=== PATIENT | male | born 1970 | race Caucasian/White ===

== ENCOUNTER 2022-12-26 18:58 | Inpatient (IN) | payer BC, SELFPAY ==
[2022-12-26] VITALS (16 sets, daily range): BP systolic 133–164; BP diastolic 79–98; PULSE 64–98; RESP 18–96; TEMP 36.7; O2SAT 96–100; BMI 25.0
--- NOTE | ~2022-12-26 | XR_ITS ---
EXAMINATION: XR chest 1V portable DATE: 12/26/2022 19:13 INDICATION: ST elevation myocardial infarction. TECHNIQUE: A single frontal view of the chest was obtained. COMPARISON: None. FINDINGS: The chest demonstrates clear lungs without pneumonia, pleural effusion, or pneumothorax. Th e heart size is normal. IMPRESSION: 1. No acute cardiopulmonary disease. Reviewed, dictated and finalized at location E.
--- NOTE | 2022-12-26 19:06 | ED.CHESTPAIN ---
HPI - Chest Pain General Chief Complaint: Chest Pain Stated Complaint: stemi History of Present Illness HPI narrative: 52-year-old male presented the emergency department by EMS for evaluation of STEMI. Approximately 30 minutes prior to arrival patient had onset of substernal chest pain. Patient reports he is getting ready to work out. Patient has no prior history of DE. Patient reports he does have some mild hypertension but does not take any medications. Patient does take atorvastatin and metformin for high cholesterol and diabetes. Patient states he works out 30 minutes a day but typically has no chest pain with exertion. Patient has never had a stress test. Patient describes substernal chest pain that does not radiate to his arms neck or back. Patient does report some mild shortness of breath. Related Data Home Medications Medication Instructions Recorded Confirmed atorvastatin 20 mg tablet 20 mg PO QAM 12/26/22 12/26/22 metformin 1,000 mg tablet 1,000 mg PO BID 12/26/22 12/26/22 Allergies Allergy/AdvReac Type Severity Reaction Status Date / Time erythromycin base Allergy hives Verified 08/19/22 08:10 Review of Systems Review of Systems: All systems reviewed & are unremarkable except as noted in HPI and below PMFSH Past Medical History Medical History Hyperlipidemia Type 2 diabetes mellitus without complications Surgical History Surgical History History of tonsillectomy (~1977) Family History Family History Father Diabetes mellitus Arteriosclerotic heart disease (ASHD) Father Diabetes mellitus Family history of cardiovascular disease Grandparent Acute myocardial infarction Mother Family history of malignant neoplasm of breast in first degree relative Social History Social History (Updated 08/19/22 @ 09:12 by Anna Issa, STRUCTURAL ANALYSIS ENGINEER) Social History: Prabhakar is single, he has no children. 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 Smoking packs per day: 1.5 Smoking cigarettes per day: 30.0 Smoking status: Former smoker Tobacco type: cigarettes Smoking end date: 10/15/21 Alcohol intake: never Substance use: current Substance use type: marijuana Lack of Transportation: No Lack of Food: Never True Current Housing: I Have Housing Concerned About Future Housing: No Difficulty Paying Gas/Electric Bills: No Difficulty Paying for Meds: No Currently Unemployed: No Education: Bachelor's Degree Difficulty w/ Childcare or Family Care: No Exam Narrative: APPEARANCE: Pale appearing HEAD: normocephalic, atraumatic. EYES: PERRLA/EOMI, conjunctivae clear. NOSE: Normal no drainage EARS:TMS clear with good light reflex. THROAT: Pharynx clear, no exudate. NECK: Supple. No adenopathy, no masses. RESPIRATORY: Airway patent, respirations nonlabored. Clear to auscultation bilaterally, no rales, rhonchi, wheezing. CARDIOVASCULAR: Regular rate and rhythm without murmurs rubs or gallops. ABDOMINAL: Soft, nontender, nondistended, normal bowel sounds MUSCULOSKELETAL: Moves all extremities. Strength/ROM intact, No edema, No calf tenderness. NEURO: Alert. Cranial nerves II through XII intact. SKIN: Warm, dry. Normal Color Course Course Emergency Course: 52-year-old male presenting to the emergency department by EMS for a STEMI that was called in the field. Cardiology was consulted and Dr. Cisneros reports he is in route to the emergency department. Upon arrival to the ED patient had been treated with aspirin per EMS. No nitro was given due to it being an inferior DE. Patient was treated with heparin bolus and Brilinta. Patient was transferred to the emergency room Vital Signs Vital signs: Vital Signs Temperature 98.1 F 12/26/22 19:01 Pulse Rate 64 12/26/22 19:01 Respiratory Rate 18 12/26/22 19:01
[2022-12-26] MEDS: TICAGRELOR 90 MG TABLET 180 MG PO (19:14)
[2022-12-26 19:22] LABS: Basophils Absolute Auto 0.1 K/mm3 (0.0-0.1); Basophils Percent Auto 0.7 % (0.2-1.2); Eosinophils Absolute Auto 0.4 K/mm3 (0-0.3); Eosinophils Percent Auto 5.4 % (0-4.4); Hematocrit 44.6 % (42.0-52.0); Hemoglobin 14.2 g/dL (14.0-18.0); Immature Granulocyte Absolute 0.01 K/mm3 (0.00-0.031); Immature Granulocyte Percent A 0.1 % (0-0.5); Lymphocytes Absolute Auto 3.59 K/mm3 (0.9-3.2); Lymphocytes Percent Auto 48.6 % (18.3-44.2); Mean Corpuscular HGB Conc 31.8 g/dl (32-36); Mean Corpuscular Hemoglobin 26.4 pg (26-34); Mean Corpuscular Volume 83.1 fl (80-100); Mean Platelet Volume 10.7 fl (7.4-10.4); Monocytes Absolute Auto 0.5 K/mm3 (0.1-0.6); Monocytes Percent Auto 6.8 % (2.6-8.5); Neutrophils Absolute Auto 2.8 K/mm3 (1.3-6.7); Neutrophils Percent Auto 38.4 % (45.5-73.1); Platelet Count Result 208 k/mm3 (150-375); Red Blood Count 5.37 M/mm3 (4.6-6.20); White Blood Count 7.4 K/mm3 (4.5-10.0)
[2022-12-26] MEDS: HEPARIN SODIUM 5,000 UNITS/ML VIAL 5000 UNITS IV PUSH (19:32)
[2022-12-26 19:35] LABS: INR 0.9; Partial Thromboplastin Time 24.1 SECONDS (22.3-36.8); Prothrombin Time 12.8 Seconds (11.1-14.7)
[2022-12-26 19:42] LABS: LDL Cholesterol Direct 51 mg/dL
[2022-12-26 19:45] LABS: Troponin I < 0.012 ng/mL (0.000-0.034)
[2022-12-26 19:50] LABS: Alanine Aminotransferase 43 U/L (6-50); Albumin Level 2.6 g/dL (3.5-5.1); Alkaline Phosphatase 69 U/L (38-126); Anion Gap 4 mmol/L (8-16); Aspartate Amino Transferase 67 U/L (17-59); Bilirubin,Total 0.5 mg/dL (0.2-1.3); Blood Urea Nitrogen 12 mg/dL (9-20); Calcium 5.7 mg/dL (8.4-10.2); Carbon Dioxide 22 mmol/L (22-30); Chloride 114 mmol/L (98-107); Cholesterol 95 mg/dL (0-200); Estimated CRCL calculation 124 ml/min; Estimated Glomerular Filt Rate > 60; Glucose 119 mg/dL (65-110); HDL Direct 21 mg/dL; Sodium 140 mmol/L (137-145); Triglycerides 177 mg/dL (<150)
--- NOTE | 2022-12-26 20:26 | ECG_ITS ---
Measurements Intervals [place] Rate: 63 P: 73 [place]: 165 QRS: 66 QRSD: 94 T: 84 QT: 400 QTc: 410 Interpretive Statements SINUS RHYTHM POSSIBLE LEFT ATRIAL ENLARGEMENT INFERIOR ST ELEVATION MYOCARDIAL INJURY- ACUTE POSTERIOR INFARCT, ACUTE ABNORMAL ECG NO PREVIOUS ECG AVAILABLE FOR COMPARISON Electronically Signed On 12-26-2022 20:38:48 CDT by Ulises Newsome D.O.
--- NOTE | 2022-12-26 20:37 | WPDCARDPROC ---
Cardiac Cath Procedure Note Date of procedure:: 12/26/22 Performing physician:: Bartolome Cisneros MD Indication:: inferior wall ST-elevation [place] Brief clinical history:: 52-year-old man without prior cardiac history he has dyslipidemia and reports borderline diabetes. Presents with chest pain and acute inferior ST-elevation [place] this evening. Procedure Procedure performed:: Emergency coronary angiography emergency PCI(MAURICIO) to the distal RCA / RPDA ostium PTCA of the RPL through the struts of the stent left ventriculogram Sedation/Medication given:: fentanyl 50 mg Versed 2 mg case start time 7:43 p.m. case end time 8:22 p.m. sedation provided by Tatiana Davison RN, trained observer Access site:: right femoral artery Estimated blood loss:: 100 cc Procedure note:: patient was brought to the cardiac catheterization lab in the emergency setting described above. The right femoral triangle was prepped and draped usual fashion. Anesthesia was provided with 1% lidocaine infiltrated locally. Using a modified Seldinger technique the femoral artery was punctured and a 6 Dominican vascular sheath was placed. After this I used a 5 Dominican FL4 catheter to engage and inject the left coronary artery in multiple projections after this I used a 6 Dominican JR4 guiding catheter to engage inject the right coronary artery. The cineangiograms were reviewed and PCI of the distal RCA/ RPDA ostium was recommended a carried out as detailed below. Prior to PCI the patient received a bolus and infusion of Angiomax for procedural anticoagulation. He did receive 325mg of aspirin and 180 mg of Brilinta in the emergency department. Following PCI as detailed below the guiding catheter and guidewires were removed and a 5 Dominican angled pigtail catheter was used to measure left-sided hemodynamics and to perform a left ventriculogram in the ESCALANTE projection. Following this the case was terminated the sheath was sutured into position the patient will be taken to the ICU post [place] PCI recovery. Procedure was well tolerated and uncomplicated. Findings:: Hemodynamics: Central aortic pressure is 164 over 82 left ventricle 164 to end-diastolic 18 the a pullback across the aortic valve. Left ventricle: The LV is normal in size the base of the inferior wall as well as the midportion are akinetic the remainder of the LV contracts normally the global ejection fraction is 50-55%. The left main coronary artery is nicely patent the left anterior descending is a moderate caliber artery extending down to the apex. The LAD and its branches are free of significant disease there is mild luminal irregularity in the mid LAD but no significant lesions are identified. The circumflex is a medium caliber vessel giving rise to the marginal branches the circumflex system has mild diffusely atherosclerotic irregularities but no functional flow-limiting disease is seen. The right coronary artery is very large in caliber and dominant to the posterior circulation the right coronary artery has an inferior downward takeoff. Ostium vessel is widely patent 1st portion of the RCA has mild 40-50% stenosis. This remainder of the trunk of the RCA has mild diffuse atherosclerotic irregularities but no stenotic lesions. There is subtotal 99% stenosis at the origin of the RPDA extending into the distal RCA proper. The RPL branch is medium in caliber and free of disease. There is PERCY 1 flow in the RPDA angiographically. Intervention: The right coronary artery was wired using a 0.014 BMW coronary guidewire I used this to traverse the distal subtotal occlusion and advance the wire into the RPDA. The target lesion was then pre-dilated using a 2.5 x 20 mm Boyd balloon which did restore PERCY 3 flow into the RPDA. Following this the lesion was stented using 2.75 x 15 mm Orsiro drug-eluting stent extending from the proximal part of the RPDA back into the distal RCA proper. Following
--- NOTE | 2022-12-26 20:49 | PM.IMHP ---
H&P: HPI History of Present Illness Date/Time: 12/26/22 20:49 Chief Complaint: chest pain Narrative: this is a 52-year-old man unknown to me prior to this emergency. He presents to the emergency room this evening with chest pain that began about 45 minutes. ECG in the ambulance demonstrates obvious acute inferior ST-elevation [place]. he reports no prior cardiac history. He says that he has some dyslipidemia and prediabetes. He quit smoking about 1 year ago. 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 Review of Systems Review of Systems: ROS unobtainable: Yes unobtainable due to medical condition PMF Past Medical History Medical History Hyperlipidemia Type 2 diabetes mellitus without complications Surgical History Surgical History History of tonsillectomy (~1977) Family History Family History Father Diabetes mellitus Arteriosclerotic heart disease (ASHD) Father Diabetes mellitus Family history of cardiovascular disease Grandparent Acute myocardial infarction Mother Family history of malignant neoplasm of breast in first degree relative Social History Social History (Updated 08/19/22 @ 09:12 by Anna Issa, CANAL SUPERINTENDENT) Social History: Prabhakar is single, he has no children. 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 Smoking status: Former smoker Tobacco type: cigarettes and e-cigarettes/vaping Smoking end date: 10/15/21 Alcohol intake: never Substance use: current Substance use type: marijuana Lack of Transportation: No Lack of Food: Never True Current Housing: I Have Housing Concerned About Future Housing: No Difficulty Paying Gas/Electric Bills: No Difficulty Paying for Meds: No Currently Unemployed: No Education: Bachelor's Degree Difficulty w/ Childcare or Family Care: No Meds Home Medications and Allergies Home Medications Medication Instructions Recorded Confirmed Type atorvastatin 20 mg tablet See Rx Instructions .Route 09/12/22 Rx .COMPLEX #90 tabs metformin 1,000 mg tablet See Rx Instructions .Route 09/12/22 Rx .COMPLEX #180 tabs Allergies Allergy/AdvReac Type Severity Reaction Status Date / Time erythromycin base Allergy hives Verified 08/19/22 08:10 Vital Signs Vital Signs - 24 hr 12/26/22 19:01 12/26/22 19:31 Temperature 36.7 C Pulse Rate 64 64 Respiratory Rate 18 23 H Blood Pressure 164/96 H 158/94 H Pulse Oximetry 100 100 Oxygen Delivery Nasal Cannula Oxygen Flow Rate 2 Exam Const: General: uncomfortable Other: Well-developed well-nourished white male appearing his stated age appears to be uncomfortable with chest pain HENMT: Mouth: Yes moist mucous membranes Eyes: Sclera: sclerae normal Neck: Neck: supple and no JVD Other: carotid arteries are unremarkable in palpation and auscultation bilaterally Resp: Effort & Inspection: normal respiratory effort Auscultation: clear to auscultation bilaterally Cardio: Rate: regular rate Rhythm: regular rhythm Other: no murmur S4 gallop is audible no rub GI: GI Palp: Yes Soft to palpation Auscultation: normal bowel sounds Skin: General skin exam: normal color Neuro: Other: alert and oriented x3 Extrem: Other: normal perfusion no edema H&P: Results Labs Labs: Short CBC 12/26/22 Range/Units 19:12 WBC 7.4 (4.5-10.0) K/mm3 Hgb 14.2 (14.0-18.0) g/dL Hct 44.6 (42.0-52.0) % Plt Count 208 (150-375) k/mm3 BMP 12/26/22 19:12 Sodium 140 Potassium 2.0 L* Chloride 114 H Carbon Dioxide 22 BUN 12 Creatinine 0.50 L Glucose 119 H Calcium 5.7 L Cardiac Enzymes 12/26/22 Range/Units 19:12 Troponin I < 0.012 (0.000-0.034) ng/mL L
--- NOTE | 2022-12-26 20:51 | ADMGEN ---
This patient, Prabhakar Balderrama, was admitted to Intensive Care Unit-9. Patient/family oriented to hospital policies and general routines including ID bracelet, bed and alarms, visiting hours, pain management, procedures, bathroom and other care routines, personal items, smoking policy, room service/diet, and visiting hours. Information on how to activate the Rapid Response Team has been discussed. Patient/Family are encouraged to report perceived risks to care and to ask questions if they do not understand what they are told or what they should do.
--- NOTE | 2022-12-26 21:11 | ECG_ITS ---
Measurements Intervals [place] Rate: 92 P: 73 ND: 181 QRS: 46 QRSD: 88 T: 7 QT: 354 QTc: 439 Interpretive Statements SINUS RHYTHM INFERIOR INFARCT, RECENT ABNORMAL ECG COMPARED TO ECG 12/26/2022 19:03:58 INFERIOR INFARCT, RECENT Electronically Signed On 12-27-2022 7:46:02 CDT by Ulises Newsome D.O.
[2022-12-26 21:39] LABS: Anion Gap 9 mmol/L (8-16); Blood Urea Nitrogen 15 mg/dL (9-20); Calcium 9.1 mg/dL (8.4-10.2); Carbon Dioxide 25 mmol/L (22-30); Chloride 102 mmol/L (98-107); Cholesterol 151 mg/dL (0-200); Estimated CRCL calculation 105 ml/min; Estimated Glomerular Filt Rate > 60; Glucose 194 mg/dL (65-110); HDL Direct 39 mg/dL; Potassium 3.8 mmol/L (3.4-5.0); Sodium 136 mmol/L (137-145); Triglycerides 143 mg/dL (<150)
[2022-12-26] MEDS: SODIUM CHLORIDE 0.9% IV 1,000 ML 125 ML IV CONT (21:39)
[2022-12-26] MEDS: METOPROLOL TARTRATE 25 MG TABLET PO (21:44)
[2022-12-26 21:50] LABS: LDL Cholesterol Direct 86 mg/dL
[2022-12-27] VITALS (25 sets, daily range): BP systolic 114–156; BP diastolic 56–94; PULSE 53–78; RESP 17–22; TEMP 36.4–37.2; O2SAT 92–100
--- NOTE | 2022-12-27 | ECHO_ITS ---
Patient Info Name: Prabhakar Balderrama Age: 52 years : 1970 Gender: Male Ht: 65 in Wt: 145 lbs BSA: 1.75 m2 HR: 52 bpm BP: 156 / 80 mmHg Heart Rhythm: Sinus Rhythm Technical Quality: Fair Exam Date: 12/27/2022 11:48 AM Exam Location: [facility] Pulmonary Exam Room: ICU9 Patient Status: Inpatient Admit Date: 12/26/2022 Staff Ordering Physician: Bebo Wayne MD Paper Cone Maker: Halle Pang RDCS Attending Provider: Bartolome Cisneros MD Exam Type: CA echo doppler color flow Study Info Indications - CHEST PAIN STEMI S/P PCI Complete two-dimensional, color flow and Doppler transthoracic echocardiogram is performed. Summary 1. Complete two-dimensional, color flow and Doppler transthoracic echocardiogram is performed. 2. Left ventricular systolic function is normal, estimated at 55-60%. 3. The mid to basal inferior segment is akinetic, the remainder contracts normally. 4. Right ventricular chamber dimension is normal. 5. There is trace mitral valve regurgitation. Left Ventricle Left ventricular chamber dimension is normal. Left ventricular systolic function is normal, estimated at 55-60%. The left ventricular diastolic function is normal. The mid to basal inferior segment is akinetic, the remainder contracts normally. Right Ventricle Right ventricular chamber dimension is normal. Left Atria Left atrial chamber dimension is normal. Right Atria Right atrial chamber dimension is normal. Aortic Valve The aortic valve is trileaflet. There is mild aortic valve sclerosis. Pulmonic Valve The pulmonic valve is normal. Mitral Valve The mitral valve has normal leaflets. There is trace mitral valve regurgitation. Tricuspid Valve The tricuspid valve leaflets are normal. There is trace tricuspid valve regurgitation. Pericardium/Pleural The pericardium appears normal. Aorta The aortic root size at the sinus of Valsalva is normal. Left Ventricular Outflow Tract Name Value Normal LVOT 2D LVOT Diameter 2.0 cm LVOT Doppler LVOT Peak Gradient 4 mmHg LVOT Mean Gradient 2 mmHg LVOT VTI 23 cm LVOT VTI/AV VTI Ratio 0.9 LVOT Stroke Volume 69 ml LVOT CO 11.9 l/min LVOT CI 6.8 l/min/m2 Pulmonic Valve Name Value Normal PV Doppler PV Peak Gradient 2 mmHg Mitral Valve Name Value Normal MV Doppler MV Decel [place] 338 cm/s2 MV PHT 63 ms MV Area (PHT) 3.5 cm2 4.0-5.0 MV Josi
--- NOTE | 2022-12-27 05:11 | ECG_ITS ---
Measurements Intervals [place] Rate: 56 P: 69 NV: 155 QRS: -25 QRSD: 92 T: -48 QT: 418 QTc: 406 Interpretive Statements SINUS BRADYCARDIA INFERIOR INFARCT, RECENT ABNORMAL ECG COMPARED TO ECG 12/26/2022 21:11:34 SINUS BRADYCARDIA NOW PRESENT Electronically Signed On 12-27-2022 7:56:01 CDT by Ulises Newsome D.O.
--- NOTE | 2022-12-27 07:46 | PM.PNCARD ---
Progress Note: A&P Assessment and Plan (1) STEMI (ST elevation myocardial infarction): Code(s): I21.3 - ST elevation (STEMI) myocardial infarction of unspecified site Status: Acute Plan 52-year-old man with: Newly diagnosed coronary artery disease presenting yesterday evening with acute inferior ST-elevation [place]. Patient was brought to the label pinker and underwent successful PCI of the distal right coronary artery, origin of the RPDA and then balloon dilation of the origin of the RPL branch which was jailed by the stent device. He is doing well clinically this morning and has had no post [place] complications at this juncture. Long discussion with the patient about the nature of his coronary disease, last night procedure as well as the medications that are required at this time which of course include dual anti-platelet therapy, beta-devora, ARB and statin. His principal coronary risk factor was his previous history of smoking which fortunately he discontinued about a year ago. He is clinically stable and can moved to the IMU today. Would anticipate discharge on Thursday Bartolome Cisneros MD [facility] Subjective Date/time seen: Date of service: 12/27/22 07:46 Interval history: Follow-up visit in this 52-year-old man with: Coronary artery disease presenting with acute inferior ST-elevation [place] yesterday. The patient seems to be doing well this morning. Troponin did rise significantly as is to be expected. He has had no arrhythmias overnight. Exam Const: General: comfortable and no acute distress HENMT: Mouth: Yes moist mucous membranes Eyes: Sclera: sclerae normal Neck: Neck: supple and no JVD Resp: Effort & Inspection: normal respiratory effort Auscultation: clear to auscultation bilaterally Cardio: Rate: regular rate Rhythm: regular rhythm Other: No murmur no gallop GI: GI Palp: Yes Soft to palpation Auscultation: normal bowel sounds Skin: General skin exam: normal color Neuro: Other: Alert and oriented x3 Extrem: Other: Normal pulses, no edema Objective Data Vital Signs Vital Signs: Vital Signs - 24 hr 12/26/22 19:01 12/26/22 19:31 12/26/22 21:44 Temperature 36.7 C Pulse Rate 64 64 87 Respiratory Rate 18 23 H Blood Pressure 164/96 H 158/94 H Pulse Oximetry 100 100 Oxygen Delivery Nasal Cannula Oxygen Flow Rate 2 12/26/22 21:58 12/26/22 21:10 12/26/22 21:40 Temperature Pulse Rate 98 93 Respiratory Rate 18 21 H Blood Pressure 155/96 H 144/89 H Pulse Oximetry 98 99 Oxygen Delivery Room Air Oxygen Flow Rate 12/26/22 22:10 12/26/22 22:00 12/26/22 22:00 Temperature Pulse Rate 71 90 90 Respiratory Rate 19 18 Blood Pressure 133/79 140/91 H Pulse Oximetry 98 98 Oxygen Delivery Oxygen Flow Rate 12/26/22 21:11 12/26/22 22:11 12/26/22 20:55 Temperature Pulse Rate 98 71 95 Respiratory Rate 18 19 18 Blood Pressure 155/96 H 133/79 141/96 H Pulse Oximetry 98 98 97 Oxygen Delivery Oxygen Flow Rate 12/26/22 23:23 12/26/22 23:33 12/26/22 23:38 Temperature Pulse Rate 75 75 80 Respiratory Rate 19 19 25 H Blood Pressure 142/98 H 142/98 H 138/96 H Pulse Oximetry 99 99 96 Oxygen Delivery Oxygen Flow Rate 12/26/22 23:44 12/26/22 23:52 12/26/22 23:57 Temperature Pulse Rate 96 83 73 Respiratory Rate 21 H 96 H 22 H Blood Pressure 152/95 H 139/95 H 148/81 H Pulse Oximetry 99 100 96 Oxygen Delivery Oxygen Flow Rate 12/27/22 00:00 12/27/22 00:00 12/27/22 00:15 Temperature Pulse Rate 67 71 70 Respiratory Rate 17 21 H 20 Blood Pressure 129/79 129/79 132/72 Pulse Oximetry 97 97 96 Oxygen Delivery Oxygen Flow Rate 12/27/22 00:30 12/27/22 01:00 12/27/22 00:00 Temperature Pulse Rate 67 68 Respiratory Rate 18 19 Blood Pressure 135/80 127/89 Pulse Oximetry 98 96 Oxygen Delivery Room Air Oxygen Flow Rate 12/27/22 00:15 12/27/22 00:00 12/27/22 01:3
--- NOTE | 2022-12-27 08:29 | WPDCNINT ---
Assessment and Plan Assessment and plan (1) STEMI (ST elevation myocardial infarction): Code(s): I21.3 - ST elevation (STEMI) myocardial infarction of unspecified site Status: Acute Assessment and Plan: Inferior STEMI status post PCI. Patient now asymptomatic and hemodynamically stable. Continue aspirin Brilinta statin Cozaar and beta-devora Check echocardiogram Continue telemetry monitoring Transfer out of ICU today Cardiology following (2) Hyperlipidemia: Qualifiers: Hyperlipidemia type: unspecified Qualified Code(s): E78.5 - Hyperlipidemia, unspecified Code(s): E78.5 - Hyperlipidemia, unspecified Status: Chronic Assessment and Plan: Patient has been switched to Crestor by Cardiology which will be continued (3) Type 2 diabetes mellitus without complications: Qualifiers: Diabetes mellitus longterm insulin use: without longterm use Qualified Code(s): E11.9 - Type 2 diabetes mellitus without complications Code(s): E11.9 - Type 2 diabetes mellitus without complications Status: Chronic Assessment and Plan: Resume metformin from today evening Sliding scale insulin Check HbA1c Plan DVT prophylaxis -I anticipate patient will ambulate today Nutrition -heart healthy diet Code Status - Full Code Parts Representative Consult Note Consult date: 12/27/22 Reason for consult: STEMI HPI: Prabhakar Balderrama is a 52 year old male with past medical history of diabetes hyperlipidemia and history of smoking presented yesterday with chief complaint of chest pain that began 45 minutes prior to presentation. Was substernal location with no radiation. Pain was 10/10 pressure-like quality and was as stated with mild shortness of breath. No aggravating or relieving factor patient states pain completely resolved after cardiac catheterization procedure. He states he used to smoke heavily and smoked for 35 years but quit 1 year ago. He does admit to have history of hyperlipidemia for which he states statin and mild diabetes for which he takes metformin. Elevation in the ER showed inferior ST segment elevation [place]. the shunt was taken to cardiac catheterization lab and underwent PCI of distal RCA . EF 50-55%. Postprocedure patient was admitted to ICU for further evaluation management. This morning he denies any complaints and states he is feeling good. He states his chest pain has completely resolved. Patient denies fever, chest pain, shortness of breath, cough, vomiting, abdominal pain,, diarrhea, headache or constipation. Patient did had some nausea earlier but states that he would like to eat food. All other systems were reviewed and were negative. Telemetry shows sinus bradycardia in high 50s Review of Systems Review of Systems: All systems reviewed & are unremarkable except as noted in HPI and below (HPI) [facility] Past Medical History Medical History Hyperlipidemia Type 2 diabetes mellitus without complications Surgical History Surgical History History of tonsillectomy (~1977) Family History Family History Father Diabetes mellitus Arteriosclerotic heart disease (ASHD) Father Diabetes mellitus Family history of cardiovascular disease Grandparent Acute myocardial infarction Mother Family history of malignant neoplasm of breast in first degree relative Social History Social History Social History: Prabhakar is single, he has no children. 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 Smoking packs per day: 1.5 Smoking cigarettes per day: 30.0 Smoking status: Former smoker Tobacco type: cigarettes Smoking end date: 10/15/21 Alcohol intake: never Substance use: current Substance use type: marijuana Last use: 12/26/2022 Lack of Transportation: No Lack of F
[2022-12-27] MEDS: METOPROLOL TARTRATE 25 MG TABLET PO ×2 (08:44→20:30)
[2022-12-27] MEDS: ROSUVASTATIN 10 MG TABLET 20 MG PO (08:44)
[2022-12-27] MEDS: ASPIRIN 81 MG CHEWABLE TABLET PO (08:44)
[2022-12-27] MEDS: TICAGRELOR 90 MG TABLET PO ×2 (08:45→20:32)
[2022-12-27] MEDS: LOSARTAN POTASSIUM 25 MG TABLET PO (08:45)
[2022-12-27 09:01] LABS: Hemoglobin A1C 6.5 % (<5.7)
[2022-12-27 09:08] LABS: Glucose Point of Care 156 mg/dl (65-105)
--- NOTE | 2022-12-27 10:52 | PC.NURSE ---
Cardiopulmonary Rehab Services flyer was given to patient.
--- NOTE | 2022-12-27 12:01 | PC.NURSE ---
Report given to RUT Branham at 1200 via telephone report. All questions answered and plan of care reviewed. Patient to move to IMU room 200.
[2022-12-27 12:28] LABS: Glucose Point of Care 153 mg/dl (65-105)
[2022-12-27] MEDS: metFORMIN HCL 500 MG TABLET 1000 MG PO (17:39)
[2022-12-27 17:48] LABS: Glucose Point of Care 177 mg/dl (65-105)
[2022-12-27 20:52] LABS: Glucose Point of Care 155 mg/dl (65-105)
[2022-12-28] VITALS (7 sets, daily range): BP systolic 115–125; BP diastolic 60–78; PULSE 55–70; RESP 16–18; TEMP 36.4–37.1; O2SAT 96–100
[2022-12-28 08:10] LABS: Glucose Point of Care 106 mg/dl (65-105)
[2022-12-28] MEDS: TICAGRELOR 90 MG TABLET PO (08:18)
[2022-12-28] MEDS: ROSUVASTATIN 10 MG TABLET 20 MG PO (08:18)
[2022-12-28] MEDS: METOPROLOL TARTRATE 25 MG TABLET PO (08:18)
[2022-12-28] MEDS: LOSARTAN POTASSIUM 25 MG TABLET PO (08:19)
[2022-12-28] MEDS: ASPIRIN 81 MG CHEWABLE TABLET PO (08:19)
[2022-12-28] MEDS: metFORMIN HCL 500 MG TABLET 1000 MG PO (08:19)
--- NOTE | 2022-12-28 09:53 | PM.DS ---
DS: Admitting Diagnosis Discharge Date December 28, [address] elevation myocardial infarction DS: Discharge Diagnosis Discharge Diagnosis (1) STEMI (ST elevation myocardial infarction): Code(s): I21.3 - ST elevation (STEMI) myocardial infarction of unspecified site Status: Acute DS: Summary Hospital Course Reason for hospitalization: Inferior wall myocardial infarction Hospital Course: This is a 52-year-old man without previous known coronary artery disease. He came to the hospital the evening of admission with acute chest pain pain that began while he was at home. The patient called 911 and ECG in the field was diagnostic of acute inferior wall infarction. He was brought to the emergency room and then brought to the laboratory worker for emergency angiography. 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 There was mild 40-50% proximal RCA lesions and mild diffuse luminal irregularities in the left coronary artery. He underwent successful PCI of the target lesion using a drug-eluting stent with a good anatomical result. The stent was placed in the distal RCA and into the origin of the RPDA providing a nice anatomic result. There was plaque shifting into the origin of the RPL which was addressed with balloon dilatation through the struts of the deployed stent. The end of the procedure the angiographic result was very good. He was recovered in the hospital for the next couple of days and had no post OR complications. He is ambulating today has no complaints appears to be a good candidate for discharge. There have been no complications following his infarction at this juncture. Status at Discharge Functional status at discharge: independent ambulation Overall status at discharge: patient is progressing back to baseline Time Spent with Patient Time attestation: Total time spent providing and/or coordinating discharge services: Time spent: Greater than 30 minutes Exam Const: General: comfortable and no acute distress HENMT: Mouth: Yes moist mucous membranes Eyes: Sclera: sclerae normal Neck: Neck: supple and no JVD Other: Normal carotid impulses Resp: Effort & Inspection: normal respiratory effort Auscultation: clear to auscultation bilaterally Cardio: Rate: regular rate Rhythm: regular rhythm Other: No murmur no gallop no rub GI: GI Palp: Yes Soft to palpation Auscultation: normal bowel sounds Skin: General skin exam: normal color Neuro: Other: Alert and oriented x3 Extrem: Other: No edema, good pulses. Right groin access site is unremarkable normal pulse no bruit DS: Data Data Completed and Pending Labs on day of discharge: Labs from last 24 hours 12/28/22 12/27/22 12/27/22 07:43 19:46 17:38 POC Capillary Glucose 106 H 155 H 177 H 12/27/22 12:17 POC Capillary Glucose 153 H Discharge Plan Discharge Attending physician on discharge: Bartolome Cisneros Discharging Clinician: Bartolome Cisneros Anticipated Discharge Date/Time: 12/28/22 09:49 Patient Disposition: Home, Self-Care Activity: no straining and other - see discharge instructions Diet: heart healthy Patient Instructions: Antibiotic Form, Metoprolol (By mouth), Nitroglycerin (By mouth), Aspirin (By mouth), Losartan (By mouth), Rosuvastatin (By mouth), Ticagrelor (By mouth), Heart Healthy Diet (DC), Acute Coronary Syndrome (DC), Basic Carbohydrate Counting (DC), Cardiac Rehabilitation (DC), Diabetes and Nutrition (DC), Diabetes and Exercise (DC) Stand Alone Forms: General Discharge Information Follow-up/Referrals: Jocelyn Goodwin MD [Primary Care Provider] - Discharge Medications: New aspirin [Children's Aspirin] 81 mg Tablet,Chewable 81 mg PO DAILY@0800 Qty: 30 5RF losartan 25 mg Tablet 25 mg PO DAILY Qty: 30 5RF Brilinta 90 mg Tablet 90 mg PO Q12HR Qty: 30 5
== END 2022-12-28 11:08 | disposition home or self-care (01) | DRG 247 ==
LOC: ANHED 19:03 → ANHICU 20:48 → ANHIMU 12-27 13:45
PROVIDERS: Internal Medicine; Admitting Provider Specialist; Emergency Provider Emergency Medicine; PCP Family Medicine; Visit Provider Specialist
PROC: 4A023N7 Measurement of Cardiac Sampling and Pressure, Left Heart, Percutaneous Approach (ICD-10-PCS; CPT 93452; principal; 2022-12-26 19:30)
PROC: 027034Z Dilation of Coronary Artery, One Artery with Drug-eluting Intraluminal Device, Percutaneous Approach (ICD-10-PCS; 2022-12-26 19:30)
DX: I21.11 ST elevation (STEMI) myocardial infarction involving right coronary artery (principal); E78.5 Hyperlipidemia, unspecified; E11.9 Type 2 diabetes mellitus without complications; Z87.891 Personal history of nicotine dependence
CPT/HCPCS: 36415; 71045; 80048; 80053; 80061; 82948; 83036; 84484; 85025; 85610; 85730; 86850; 86900; 86901; 93005; 93306; 93458; 99285; A9270; C1725; C1769; C1874; C1887; C1894; C9606; J0461; J0583; J1644; J2250; J3010; J7030; J7040